=== PATIENT | female | born 1965 ===

== ENCOUNTER 2016-10-06 07:16 | Emergency (ER) | payer MEDICAID ==
[2016-10-06 07:20] VITALS: BP 142/95; PULSE 73; TEMP 98; O2SAT 99; BMI 30.2
[2016-10-06 07:45] VITALS: RESP 17
--- NOTE | 2016-10-06 07:59 | ED PDOC ---
HPI: Chest Pain Time Seen by Provider: 10/06/16 07:18 Chief Complaint (Nursing): Chest Pain Chief Complaint (Provider): Chest Pain History Per: Patient History/Exam Limitations: no limitations Onset/Duration Of Symptoms: Days (x7) Current Symptoms Are (Timing): Still Present Additional Complaint(s): Yeimy Delong is a 51 year old female with a past medical history of hypertension presenting to the ED for an evaluation of right anterior lower rib pain occurring for 1 week prior to arrival. The patient denies any history of trauma, shortness of breath, cough, or fever. PMD: Non [facility] Provider Past Medical History Reviewed: Historical Data, Nursing Documentation, Vital Signs Vital Signs: Last Vital Signs Temp 98 F 10/06/16 07:19 Pulse 73 10/06/16 07:19 Resp 17 10/06/16 07:43 BP 142/95 H 10/06/16 07:19 Pulse Ox 99 10/06/16 08:02 - Medical History PMH: Depression, HTN - Family History Family History: States: Unknown Family Hx - Social History Current smoker - smoking cessation education provided: No Ex-Smoker (has not smoked in the last 12 months): No Alcohol: None - Home Medications Home Medications: Ambulatory Orders Medication Instructions Recorded Atenolol/Chlorthalidone 1 tab PO DAILY 06/04/14 [Atenolol/Chlorthalidone 100 mg-25 mg] Meclizine [Meclizine*] 25 mg PO Q6 PRN #20 tab 06/04/14 Zolpidem Tartrate [Zolpidem] 1 tab PO HS PRN 06/04/14 Naproxen [Naprosyn] 500 mg PO Q12H #20 tab 10/06/16 - Allergies Allergies/Adverse Reactions: Allergies Allergy/AdvReac Type Severity Reaction Status Date / Time No Known Allergies Allergy Verified 10/06/16 07:43 Review of Systems ROS Statement: Except As Marked, All Systems Reviewed And Found Negative Constitutional: Negative for: Fever Respiratory: Negative for: Cough, Shortness of Breath Musculoskeletal: Positive for: Other (right anterior lower rib pain) Physical Exam - Reviewed Nursing Documentation Reviewed: Yes Vital Signs Reviewed: Yes - Physical Exam Appears: Positive for: Well, Non-toxic, No Acute Distress Head Exam: Positive for: ATRAUMATIC, NORMAL INSPECTION, NORMOCEPHALIC Skin: Positive for: Normal Color, Warm, DRY Eye Exam: Positive for: EOMI, Normal appearance, PERRL ENT: Positive for: Normal ENT Inspection Neck: Positive for: Normal, Painless ROM Cardiovascular/Chest: Positive for: Regular Rate, Rhythm. Negative for: Chest Non Tender (tenderness to right anterior ribs), Other (no flail, no ecchymosis, no deformity) Respiratory: Positive for: Normal Breath Sounds (equal breath sounds bilaterally ) Gastrointestinal/Abdominal: Positive for: Normal Exam, Bowel Sounds, Soft. Negative for: Tenderness Back: Positive for: Normal Inspection Extremity: Positive for: Normal ROM Neurologic/Psych: Positive for: Alert, Oriented - ECG O2 Sat by Pulse Oximetry: 99 (RA) Pulse Ox Interpretation: Normal Medical Decision Making Medical Decision Making: Time: 07:18 Impression: Right anterior lower rib pain Plan: * Ribs and Chest RT [RAD] * Reevaluation Scribe Attestation: Documented by Veronica Powell, acting as a scribe for Randell Garcia MD. Provider Scribe Attestation: All medical record entries made by the Scribe were at my direction and personally dictated by me. I have reviewed the chart and agree that the record accurately reflects my personal performance of the history, physical exam, medical decision making, and the department course for this patient. I have also personally directed, reviewed, and agree with the discharge instructions and disposition. Disposition - Clinical Impression Clinical Impression: Rib sprain - Patient ED Disposition Is Patient to be Admitted: No - Disposition Referrals: [facility] [Outside] Disposition: Routine/Home Disposition Time: 08:48 Condition: FAIR Prescriptions: Naproxen [Naprosyn] 500 mg PO Q12H #20 tab Instructions: Sprain (ED), Musculoskeletal Pain (ED) Forms: [employer] ([place]rainian) Print Language: ESTONIAN
--- NOTE | 2016-10-06 11:56 | RAD ---
PROCEDURE: Radiographs of the Chest and Right Ribs. HISTORY: pain right side COMPARISON: None available. TECHNIQUE: Frontal radiograph of the chest and multiple oblique radiographs of the right ribs were obtained. FINDINGS: RIGHT RIBS: No fracture or focal lesion visualized. LUNGS: Clear. PLEURA: No pneumothorax or pleural fluid. CARDIOVASCULAR: Normal sized heart. No pulmonary vascular congestion. OTHER FINDINGS: None. IMPRESSION: No radiographic evidence of acute displaced fracture. No evidence of pleural effusion or pneumothorax.
== END 2016-10-06 09:18 | disposition home or self-care (01) ==
LOC: H.ER 07:16
DX: S23.41XA Sprain of ribs, initial encounter (principal); X50.9XXA Other and unspecified overexertion or strenuous movements or postures, initial encounter; Y92.89 Other specified places as the place of occurrence of the external cause; F32.9 Major depressive disorder, single episode, unspecified; I10 Essential (primary) hypertension